=== PATIENT | male | born 2000 | race Caucasian/White ===

== ENCOUNTER → 2021-08-31 15:54 | Outpatient (BNVA) | payer BC, SELFPAY | PROVIDERS: Visit Provider Nurse Practitioner Family | DX: R10.9 Unspecified abdominal pain (principal); R11.0 Nausea; K92.1 Melena; K21.9 Gastro-esophageal reflux disease without esophagitis; K29.60 Other gastritis without bleeding; R19.7 Diarrhea, unspecified | CPT/HCPCS: 80053; 82150; 83690 ==